=== PATIENT | female | born 1970 | race Caucasian/White ===

== ENCOUNTER 2019-08-31 20:02 | Emergency (ER) | payer MEDICARE, MEDICAID ==
[~2019-08-31] VITALS: Ht 152.4 cm; Wt 100.7 kg
[2019-08-31] MEDS ORDERED: JANUVIA50 MG PO (20:13)
[2019-08-31] MEDS ORDERED: ERYTHROMYCIN E3.5 G3 OPHTHALMIC (20:13)
[2019-08-31] MEDS ORDERED: TIROSINT112 MCG PO (20:13)
[2019-08-31] MEDS ORDERED: SINGULAIR 10 MG10 MG PO (20:14)
[2019-08-31] MEDS ORDERED: OMEPRAZOLE40 MG PO (20:14)
[2019-08-31] MEDS ORDERED: SYSTANE1 EACH TOP (20:14)
[2019-08-31] MEDS ORDERED: METFORMIN HCL500 M3 PO (20:14)
[2019-08-31] MEDS ORDERED: PROAIR HFA8.5 GM INH (20:14)
[2019-08-31 21:07] LABS: INFLUENZA A ANTIGEN Negative (Negative); INFLUENZA B ANTIGEN Negative (Negative)
[2019-08-31] MEDS ORDERED: ZPAK PO (21:47)
[2019-08-31] MEDS ORDERED: VENTOLIN HFA 1818 GM INH (21:47)
[2019-08-31] MEDS ORDERED: PREDNISONE 20 M20 MG PO (21:47)
[2019-08-31] MEDS ORDERED: SPACERADULT MISCELL (21:47)
== END 2019-08-31 21:59 | disposition home or self-care (01) ==
LOC: M.ERS 20:02
PROVIDERS: Nurse Practitioner Family
DX: J20.9 Acute bronchitis, unspecified (principal); G47.30 Sleep apnea, unspecified; E03.9 Hypothyroidism, unspecified